=== PATIENT | female | born 1980 | race Hispanic/Latino ===

== ENCOUNTER 2017-07-27 08:18 | Day surgery (SDC) | payer OTHER ==
[2017-07-26 09:34] VITALS: BMI 27.1
[2017-07-27] MEDS ORDERED: cefOXitin IV 1 gm in Dextrose 1 GM/50 ML BAG IVPB ONE ×2 (09:29→09:31)
[2017-07-27] MEDS ORDERED: Oxytocin 10 Units/ml Inj ONE (09:29)
--- NOTE | 2017-07-27 09:36 | US ---
PROCEDURE: OB Pelvic Ultrasound HISTORY: Missed LMP: 05/03/2017 COMPARISON: None available. FINDINGS: UTERUS: Gestational sac: Single intrauterine gestation. Measures 3.4 cm compatible with estimated gestational age is 8 weeks, 4 days. Yolk sac: Measures 0.6 cm. pole: Burr-rump length measures 1.6 cm compatible with estimated gestational age of 8 weeks, 0 days Heart rate: Not identified. age (Ultrasound estimated): 8 weeks, 2 days Cornelia-gestational hemorrhage: None. Date of delivery (Ultrasound estimated) : 03/06/2018 Uterus measures 12.5 x 7.0 x 7.9 cm. Anteverted. Normal in size and appearance. CERVIX: Measures 3.8 cm. Long and closed. No cervical abnormality seen. RIGHT OVARY: Measures 3.5 x 2.4 x 2.4 cm. No mass lesion. Normal flow. LEFT OVARY: Measures 2.8 x 1.6 x 3.0 cm. No solid mass. Normal flow. FREE FLUID: None. OTHER FINDINGS: None. IMPRESSION: Single intrauterine gestation with average ultrasound age of 8 weeks, 2 days, but without identifiable heart rate. Findings are worrisome for failure of early . Close clinical and sonographic follow-up is recommended.
[2017-07-27] MEDS ORDERED: Lactated Ringer's 1,000 ML IV ONE (09:40)
[2017-07-27] MEDS ORDERED: Propofol 10 mg/ml Inj (20 ML) ONE (09:50)
[2017-07-27] MEDS ORDERED: Midazolam 2 MG/2 ML VIAL ONE (09:51)
--- NOTE | 2017-07-27 10:19 | PCM.SURG1 ---
Surgeon's Initial Post Op Note - Surgeon's Notes Surgeon: dr harrington Project Buyer: none Type of Anesthesia: General LMA Anesthesia Administered By: dr bradley Pre-Operative Diagnosis: missed at 8week Operative Findings: same Post-Operative Diagnosis: same Operation Performed: suction d&c Specimen/Specimens Removed: poc. chromosome Estimated Blood Loss: EBL {In ML}: 20 Blood Products Given: N/A Drains Used: No Drains Post-Op Condition: Good Date of Surgery/Procedure: 07/27/17 Time of Surgery/Procedure: 11:00
[2017-07-27] MEDS ORDERED: DiphenhydrAMINE 50 mg/ml Inj IVP PRN (10:36)
[2017-07-27 12:53] VITALS: BP 106/59; PULSE 72; RESP 20; TEMP 98.2; O2SAT 100
--- NOTE | 2017-07-27 22:32 | OP ---
PROCEDURE DATE: 07/27/2017 PREOPERATIVE DIAGNOSIS: A 36-year-old 7, para 2, with missed at 8 weeks. POSTOPERATIVE DIAGNOSIS: A 36-year-old 7, para 2, with missed at 8 weeks. SURGEON: Francisco Gee MD ROD FILLER: None. TYPE OF ANESTHESIA: General. ANESTHESIOLOGIST: Dr. Spangler. PROCEDURE PERFORMED: Suction dilation and curettage. DESCRIPTION OF PROCEDURE: After informed consent was obtained, the patient was brought to the operating room, placed on the table where general anesthesia was given. Once the anesthesia was given, the patient was prepped and draped in normal sterile fashion. Examination under anesthesia found uterus to be 8 week size. No pelvic or adnexal masses. Anterior lip of the cervix was grasped with a tenaculum. Gentle dilatation of the cervix was done. A 6 and 7-Cymraes flexible was used to do the suction. Sharp curettage was done of anterior wall of the uterus and the posterior wall of the uterus. ECC was sent for the pathology. Products of D and C was sent for chromosome. After that, the tenaculum was taken out of the anterior lip of the cervix. The patient tolerated the procedure well. Lap, sponge, and instrument counts were correct x2. Francisco Gee MD
== END 2017-07-27 13:10 | disposition home or self-care (01) ==
LOC: C.SDS 08:18
PROVIDERS: ATTEND Obstetrics & Gynecology
DX: O02.1 Missed abortion (principal); Z3A.08 8 weeks gestation of pregnancy
CPT/HCPCS: 59820; 76817; 88233; 88262; 88305; J0694; J2175; J2250; J2704; J3010; J7120